=== PATIENT | female | born 1955 | race Caucasian/White ===

== ENCOUNTER → 2023-01-06 10:39 | Outpatient (CLI) | payer MEDICARE, SELFPAY ==
--- NOTE | ~2023-01-06 | MR_ITS ---
MRI of the right knee Clinical history: Osteoarthritis Technique: Coronal proton density and proton density-weighted images, sagittal proton-density and T2 fat-sat images, and axial proton-density fat-saturated images were acquired. Findings: Anterior and posterior cruciate ligaments are intact. Medial collateral ligament and the la teral collateral ligament complex are intact. Popliteus tendon is intact. Suspected subtle horizontal tear of the free edge of the anterior horn of the medial meniscus. Latera l meniscus is intact. There is mild to moderate chondral malacia patella along the medial patellar facet. Remaining articul ar cartilage in these well-preserved. Bone marrow signals are unremarkable. Extensor mechanism is intact. Small joint effusion is present. Large Bauer's cyst is present, with ad ditional probable fluid distention of semimembranosus bursa versus extension of the Bauer's cyst. Impression: Large Bauer's cyst. Additional prominent semimembranosus bursitis versus extension of the Bauer's cyst medially. 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 Probable subtle horizontal tear of the free edge of the anterior horn of the medial meniscus. Reviewed, dictated and finalized at location . Impression: Large Bauer's cyst. Additional prominent semimembranosus bursitis versus extension of the Bauer's c yst medially. 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 Probable subtle horizontal tear of the free edge of the anterior horn of the me dial meniscus.
== END ==
PROVIDERS: PCP Family Medicine; Visit Provider Nurse Practitioner Family
DX: M17.11 Unilateral primary osteoarthritis, right knee (principal); M71.21 Synovial cyst of popliteal space [Baker], right knee
CPT/HCPCS: 73721